=== PATIENT | female | born 1990 | race Caucasian/White ===

== ENCOUNTER 2016-10-26 20:07 | Emergency (ER) | payer MEDICAID, OTHER ==
[~2016-10-26] VITALS: Ht 152.4 cm; Wt 50.6 kg
[~2016-10-26 20:07] MED LIST: ALBUAER3 INH
[2016-10-26 20:15] VITALS: BP 109/72; PULSE 73; RESP 18; TEMP 98.1; O2SAT 100
--- NOTE | 2016-10-26 20:30 | PD ---
HPI Chief Complaint: Related Problem Time Seen by Provider: 20:26 Travel History International Travel<30 days: No Contact w/Intl Traveler<30days: No Traveled to known affect area: No History of Present Illness HPI This 26-year-old female is complaining of lower abdominal pain and spotting. She has had multiple tests which have been positive recently. She believes is 7 weeks and 4 days . She has not had an ultrasound yet. Her last period was September 04. She is 7 para 2. She has had multiple miscarriages early in . She has been here in the past and her blood type is O+ PFSH Past Medical History ADD: Yes ADHD: Yes Asthma: Yes Autoimmune Disease: No Anxiety: No Depression: Yes Cancer: No Cardiovascular Problems: No Diabetes: No Diminished Hearing: No Gastrointestinal Disorders: No Genitourinary: No Musculoskeletal: No Neurologic: No Psychiatric: No Respiratory: Yes (ASTHMA) Migraines: No Seizures: No Thyroid Disease: No Ulcer: No ?: : 1 Para: 1 Miscarriage: 1 Past Surgical History Appendectomy: No Cholecystectomy: No Other Surgery: No Social History Alcohol Use: No Tobacco Use: Yes (1ppd) Substance Use: No ("QUIT MARIJUANA IN APRIL 18") Allergies-Medications (Allergen,Severity, Reaction): Coded Allergies: Latex (Verified Allergy, Intermediate, Itching, 10/26/16) Reported Meds & Prescriptions Reported Meds & Active Scripts Active Proair Hfa 8.5 GM Inh (Albuterol Sulfate) 90 Mcg/Act Aer 2 Puff INH Q4-6H PRN 108 mcg/actuation Review of Systems General / Constitutional: No: Fever, Chills Eyes: No: Diploplia, Blurred Vision HENT: No: Headaches, Vertigo Cardiovascular: No: Chest Pain or Discomfort, Palpitations Respiratory: No: Cough, Shortness of Breath Genitourinary: Positive: Pelvic Pain, Vaginal Bleeding Musculoskeletal: No: Myalgias Skin: No Rash Physical Exam Narrative GENERAL: Well-developed female SKIN: Warm and dry. HEAD: Atraumatic. Normocephalic. EYES: Pupils equal and round. No scleral icterus. No injection or drainage. ENT: No nasal bleeding or discharge. Mucous membranes pink and moist. NECK: Trachea midline. No JVD. GASTROINTESTINAL: Abdomen soft, non-tender, nondistended. Hepatic and splenic margins not palpable. Pelvic: There is a small amount of blood in vaginal vault. It does not appear to be active bleeding. The os is closed. The uterus is not palpably enlarged. There are no adnexal masses MUSCULOSKELETAL: No obvious deformities. No clubbing. No cyanosis. No edema. NEUROLOGICAL: Awake and alert. No obvious cranial nerve deficits. Motor grossly within normal limits. Normal speech. PSYCHIATRIC: Appropriate mood and affect; insight and judgment normal. Data Data Last Documented VS Vital Signs Date Time Temp Pulse Resp B/P Pulse Ox O2 Delivery O2 Flow Rate FiO2 10/26/16 22:35 70 18 109/61 100 Room Air 10/26/16 20:15 98.1 Orders Beta Hcg (Quant/Titer) (10/26/16 20:27) Complete Blood Count With Diff (10/26/16 20:27) Urinalysis - C+S If Indicated (10/26/16 20:27) Us Pelvis (Ques Pr/Ect)W Trans (10/26/16 21:23) Labs Laboratory Tests Test 10/26/16 10/26/16 20:30 20:45 White Blood Count 10.9 TH/MM3 Red Blood Count 5.24 MIL/MM3 Hemoglobin 13.8 GM/DL Hematocrit 41.1 % Mean Corpuscular Volume 78.4 FL Mean Corpuscular Hemoglobin 26.3 PG Mean Corpuscular Hemoglobin 33.5 % Concent Red Cell Distribution Width 12.2 % Platelet Count 289 TH/MM3 Mean Platelet Volume 8.1 FL Neutrophils (%) (Auto) 63.0 % Lymphocytes (%) (Auto) 28.5 % Monocytes (%) (Auto) 6.3 % Eosinophils (%) (Auto) 1.6 % Basophils (%) (Auto) 0.6 % Neutrophils # (Auto) 6.8 TH/MM3 Lymphocytes # (Auto) 3.1 TH/MM3 Monocytes # (Auto) 0.7 TH/MM3 Eosinophils # (Auto) 0.2 TH/MM3 Basophils # (Auto) 0.1 TH/MM3 CBC Comment DIFF FINAL Differential Comment Human Chorionic Gonadotropin, 8372 MIU/ML Quant Urine Collection Type CLEAN CATCH Urine Color STRAW Urine Turbidity CLEAR Urine pH 6.0 Urine Specific [place] 1.001 Urine Protein NEG mg/dL Urine Glucose (UA) NEG mg/dL Urine Ketones NEG mg/dL Urine Occult Blood TRACE Urine Nitrite NEG Urine Bilirubin NEG Urine Leukocyte Esterase NEG Urine RBC 0-3 /hpf Urine Squamous Epithelial 0-5 /hpf Cells Microscopic Urinalysis Comment CULT NOT INDICATED MDM Medical Decision Making Medical Screen Exam Complete: Yes Emergency Medical Condition: Yes Medical Record Reviewed: Yes Differential Diagnosis Differential includes ectopic , threatened AB, incomplete AB, blighted ovum Narrative Course Beta hCG is 8372. An ultrasound was obtained which shows an intrauterine gestational sac of 5 weeks 3 days. Yolk sac is seen but no pole is seen. 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
[2016-10-26 20:49] LABS: AUTOMATED NEUTROPHIL # 6.8 TH/MM3 (1.8-7.7); BASOPHIL # 0.1 TH/MM3 (0-0.2); BASOPHIL % 0.6 % (0.0-2.0); EOSINOPHIL # 0.2 TH/MM3 (0-0.4); EOSINOPHIL % 1.6 % (0.0-4.0); HEMATOCRIT 41.1 % (35.0-46.0); HEMO FLAGS DIFF FINAL; LYMPH % 28.5 % (9.0-44.0); LYMPHOCYTE # 3.1 TH/MM3 (1.0-4.8); MEAN CELL VOLUME 78.4 FL (80.0-100.0); MEAN CORPUSCULAR HEMOGLOBIN 26.3 PG (27.0-34.0); MEAN CORPUSCULAR HGB CONC 33.5 % (32.0-36.0); MONO % 6.3 % (0.0-8.0); PLATELET COUNT 289 TH/MM3 (150-450); RED BLOOD COUNT 5.24 MIL/MM3 (4.00-5.30); RED CELL DISTRIBUTION WIDTH 12.2 % (11.6-17.2); WHITE BLOOD COUNT 10.9 TH/MM3 (4.0-11.0)
[2016-10-26 21:02] LABS: BLOOD, URINE TRACE (NEG); GLUCOSE,URINE NEG (NEG); KETONE, URINE NEG (NEG); NITRITE,URINE NEG (NEG)
[2016-10-26 21:15] VITALS: BP 120/62; PULSE 77; RESP 18; O2SAT 100
[2016-10-26 21:23] LABS: BETA HCG QUANT 8372 MIU/ML (0-5)
[2016-10-26 21:41] LABS: METHOD OF COLLECTION CLEAN CATCH; URINE COLOR STRAW (YELLW/STRAW)
[2016-10-26 21:42] LABS: COMMENT (UR) CULT NOT INDICATED; CULTURE IF INDICATED CULT NOT INDICATED; RBC, URINE 0-3 /hpf (0-3); SQUAMOUS EPITHELIAL CELL URINE 0-5 /hpf (0-5)
[2016-10-26 22:35] VITALS: BP 109/61; PULSE 70; RESP 18; O2SAT 100
--- NOTE | 2016-10-26 22:50 | RADHPO ---
EXAM DATE/TIME: 10/27/2016 03:03 [facility] COMPARISON: No previous studies available for comparison. INDICATIONS : Ectopic. LAB(S): Beta-hC MEDICAL HISTORY : . Asthma. ADHD. SURGICAL HISTORY : No recorded surgical history. ENCOUNTER: Initial ACUITY: 1 day PAIN SCORE: 4/10 LOCATION: Bilateral pelvis MEASUREMENTS: UTERUS: 6.6 x 4.3 x 4.4 cm ENDOMETRIAL STRIPE: 8 mm RIGHT OVARY: 1.9 x 1.0 x 1.0 cm LEFT OVARY: 2.5 x 1.3 x 1.9 cm FINDINGS: UTERUS: An intrauterine gestational sac is present with average estimated gestational sac diameter of 12.7 mm yielding estimated gestational age of 5 weeks 3 days. Yolk sac is noted. No pole is seen. Some hypoechoic prominence in the adjacent endometrial tissues which may be some hemorrhagic debris. RIGHT OVARY: Ovary contains no mass or significant cystic lesion. LEFT OVARY: Ovary contains no mass or significant cystic lesion. MISCELLANEOUS: No free fluid. CONCLUSION: Early intrauterine gestation without definite pole identified. Celso Vitale MD on October 26, 2016 at 22:44 Board Certified Radiologist. This report was verified electronically.
[2016-10-29] MEDS ORDERED: HYDR-3516 PO (16:25)
[2016-11-21] MEDS ORDERED: SERT25TA83 PO (10:40)
[2016-11-21] MEDS ORDERED: SERT-132 PO (10:40)
== END 2016-10-26 23:27 | disposition home or self-care (01) ==
LOC: PHED 20:07
DX: O20.0 Threatened abortion (principal); O26.851 Spotting complicating pregnancy, first trimester; R10.30 Lower abdominal pain, unspecified; F17.200 Nicotine dependence, unspecified, uncomplicated; Z86.59 Personal history of other mental and behavioral disorders; Z87.09 Personal history of other diseases of the respiratory system; Z3A.01 Less than 8 weeks gestation of pregnancy
CPT/HCPCS: 76700; 76817; 81001; 84702; 85025

== ENCOUNTER 2016-11-05 23:32 | Emergency (ER) | payer MEDICAID ==
[~2016-11-05] VITALS: Ht 152.4 cm; Wt 48.3 kg
[~2016-11-05 23:32] MED LIST changes: +HYDR-3516 PO
[2016-11-05 23:41] VITALS: BP 106/76; PULSE 78; RESP 18; TEMP 98.3; O2SAT 99
[2016-11-05 23:53] VITALS: BP 106/76; PULSE 78; RESP 18; TEMP 98.3; O2SAT 99
--- NOTE | 2016-11-06 00:34 | PD ---
HPI Chief Complaint: Leaflet Distributor Problem/Complaint Time Seen by Provider: 00:13 Travel History International Travel<30 days: No Contact w/Intl Traveler<30days: No Traveled to known affect area: No History of Present Illness HPI The patient is a 26-year-old female, G7, P2, a 5 who had a recent spontaneous 10 days ago. She passed the baby on Thursday 10 days ago. The patient states she started having chills without fever yesterday. She is still bleeding slightly but has no nausea, vomiting or fever. She has some minimal midline suprapubic pain. She does have a gynecology group that follows her. Her blood type is O+. She is taking hydrocodoneacetaminophen for the pain. Her pain level is only a 3/10. She denies any sore throat, ear pain, cough, chest pain, shortness of breath, dysuria, frequency or urgency. PFSH Past Medical History ADD: Yes ADHD: Yes Asthma: Yes Autoimmune Disease: No Anxiety: No Depression: Yes Cancer: No Cardiovascular Problems: No Diabetes: No Diminished Hearing: No Gastrointestinal Disorders: No Genitourinary: No Musculoskeletal: No Neurologic: No Psychiatric: No Respiratory: Yes (ASTHMA) Immunizations Current: Yes Migraines: No Seizures: No Thyroid Disease: No Ulcer: No Tetanus Vaccination: > 5 Years Influenza Vaccination: No ?: Not : 1 Para: 1 Miscarriage: 5 Past Surgical History Appendectomy: No Cholecystectomy: No Other Surgery: No Social History Alcohol Use: No Tobacco Use: No Substance Use: No ("QUIT MARIJUANA IN APRIL 17") Allergies-Medications (Allergen,Severity, Reaction): Coded Allergies: Latex (Verified Allergy, Intermediate, Itching, 11/05/16) Reported Meds & Prescriptions Reported Meds & Active Scripts Active Hydrocodone-Acetaminophen 5-325 mg Tab 1 Tab PO Q6H PRN Proair Hfa 8.5 GM Inh (Albuterol Sulfate) 90 Mcg/Act Aer 2 Puff INH Q4-6H PRN 108 mcg/actuation Review of Systems Except as stated in HPI: all other systems reviewed are Neg Physical Exam Narrative GENERAL: Well-nourished, well-developed patient in minimal apparent distress with her midline suprapubic discomfort. She does not appear anemic and her vital signs are normal. SKIN: Warm and dry. No skin rash is present. HEAD: Normocephalic. EYES: No scleral icterus. No injection or drainage. NECK: Supple, trachea midline. No JVD or lymphadenopathy. CARDIOVASCULAR: Regular rate and rhythm without murmurs, gallops, or rubs. RESPIRATORY: Breath sounds equal bilaterally. No accessory muscle use. GASTROINTESTINAL: Abdomen soft, with minimal discomfort in the suprapubic area to direct palpation, nondistended. No guarding or rebound is present. MUSCULOSKELETAL: No cyanosis, or edema. BACK: Nontender without obvious deformity. No CVA tenderness. GENITOURINARY: Normal external genitalia without lesions or erythema. Vaginal vault with a small amount of blood and no other drainage. Cervical os was closed to my finger with slightly drainage. There is minimal cervical motion tenderness. Uterus nontender and nonenlarged. The uterus appears contracted well. Bilateral adnexa nontender without masses. The vaginal discharge is not foul-smelling. Data Data Last Documented VS Vital Signs Date Time Temp Pulse Resp B/P Pulse Ox O2 Delivery O2 Flow Rate FiO2 11/05/16 23:57 78 18 11/05/16 23:53 98.3 106/76 99 MDM Medical Decision Making Medical Screen Exam Complete: Yes Emergency Medical Condition: Yes Medical Record Reviewed: Yes Differential Diagnosis Retained products of conception, endometritis, chills because of medication- hydrocodone, status post spontaneous Narrative Course The patient appears to have a normal spontaneous . She is not tender and there is no foul-smelling discharge. Diagnosis Primary Impression: Complete Additional Instructions: As we discussed, follow-up with your cadd drafter. It appears that you have had a normal spontaneous miscarriage. There is no evidence of infection at this time. Med/Other Pt SpecificInfo: No Change to Meds Disposition: DISCHARGE HOME Condition: Stable Paresh Little MD Nov 06, 2016 00:33
[2016-11-06 00:40] VITALS: BP 108/65
[2016-11-21] MEDS ORDERED: SERT25TA83 PO (10:40)
[2016-11-21] MEDS ORDERED: SERT-132 PO (10:40)
== END 2016-11-06 00:42 | disposition home or self-care (01) ==
LOC: PHED 23:32
DX: O03.9 Complete or unspecified spontaneous abortion without complication (principal); J45.909 Unspecified asthma, uncomplicated; F90.9 Attention-deficit hyperactivity disorder, unspecified type
CPT/HCPCS: 99283